=== PATIENT | female | born 1935 | race Caucasian/White ===

== ENCOUNTER 2017-01-07 16:18 | Emergency (ER) | payer OTHER ==
[~2017-01-07] VITALS: Ht 165.1 cm; Wt 70.3 kg
[~2017-01-07 16:18] MED LIST: ARICEPT 5MG TAB5 MG PO; DIOVAN80 MG PO; FOLIC ACID 1 MG PO; GLIMEPIRIDE4 MG PO; JANUVIA 100MG100 MG PO; JANUVIA 50MG50 MG PO; LABETALOL HYDR200 MG PO; LEVEMIR100 U/ML SC; METFORMIN ER500 MG PO; OMEPRAZOLE20 MG PO; ROZEREM8 MG PO; VALSARTAN320 MG PO
--- NOTE | 2017-01-07 16:49 | ED GENERAL ADULT ---
History of Present Illness General Chief Complaint: Dizziness Stated Complaint: PT IS DIZZY, LOW BLOOD PRESSURE Source: patient, family, old records Exam Limitations: patient's age, dementia, poor historian Vital Signs & Intake/Output Vital Signs & Intake/Output Vital Signs Date Time Temp Pulse Resp B/P B/P Pulse O2 O2 Flow FiO2 Mean Ox Delivery Rate 01/07 1945 97.2 68 18 149/79 98 Room Air 01/07 1838 97.1 62 20 170/84 98 Room Air 01/07 1627 97.4 88 16 119/66 98 Room Air ED Intake and Output 01/08 0000 01/07 1200 Intake Total Output Total Balance Patient 155 lb Weight Weight Estimated Measurement Method Allergies Uncoded Allergies: SELFISH (ANAPHYLAXIS 01/07/17) Reconcile Medications Cephalexin (Keflex) 500 MG CAPSULE 1 CAP PO TID uti Donepezil Hyrochloride (Aricept 5MG Tab) 5 MG TAB 1 TAB PO DAILY DEMENTIA Folic Acid 1 MG TABLET 1 MG PO DAILY FOLIC ACID SUPPLEMENT (Reported) Insulin Detemir (Levemir) 100 U/ML ESPERANZA 6 U SC DAILY DIABETES (Reported) Omeprazole 20 MG CAPSULE.DR 20 MG PO DAILY ACID REFLUX (Reported) Ramelteon (Rozerem) 8 MG TAB 1 TAB PO AT BEDTIME SLEEP Sitagliptin Phosphate (Januvia) 50 MG TABLET 0.5 TAB PO DAILY DIABETES Valsartan (Diovan) 80 MG TAB 1 TAB PO DAILY HBP (Reported) Triage Note: PT C/O FEELING DIZZY. GRANDSON STATES PT IS NOT HERSELF TODAY WEAK AND HAS FATIGUE. PT BROUGHT TO EKG [place]. PT WITH HYPOTENSION TODAY PER GRANDSON Triage Nurses Notes Reviewed? yes Onset: Abrupt Duration: hour(s): (12), constant, continues in ED Timing: single episode today Severity: mild, moderate Severity Numbers: 4 No Modifying Factors: none LMP (ages 10-50): post menopausal : No Patient currently breastfeeds: No HPI: 81-year-old female with history of dementia and type 2 diabetes brought in by her son for possible altered mental status. Her son reports that patient has been unsure of where she was multiple times during the day. This is different than her usual status. She is usually oriented to person place and time. Patient currently denies any pain cough nausea vomiting fevers or urinary symptoms. She has been eating and drinking normally going the bathroom normally. Taking all of her medications as directed no new medications. Her son also reports that patient's blood pressure had been low to 90s over 50s. She usually runs 120s over 80s. Patient currently reports she feels well and has no concerns other than feeling dizzy. She reports dizziness when she goes from sitting to standing. Symptoms improved with rest after she sits down. No other associated symptoms. (SANTO MELTON PA-C) Past History Travel History Traveled to [place] past 21 day No Medical History Any Pertinent Medical History? see below for history Neurological: dementia EENT: NONE Cardiovascular: hypertension Respiratory: NONE Gastrointestinal: NONE Hepatic: NONE Renal: NONE Musculoskeletal: chronic back pain Psychiatric: NONE Endocrine: diabetes Blood Disorders: anemia Cancer(s): NONE [employer] SALES [employer]ATE/Reproductive: NONE History of MRSA: No History of VRE: No History of CDIFF: No Surgical History Surgical History: cholecystectomy, knee replacement Psychosocial History Who do you live with Family Services at Home None What is your primary language Luxembourgish Tobacco Use: Never used ETOH Use: denies use Illicit Drug Use: denies illicit drug use Family History Family History, If Any: FATHER FH: stomach cancer Hx Contributory? Yes (SANTO MELTON PA-C) Review of Systems Review of Systems Constitutional: Reports: no symptoms. EENTM: Reports: no symptoms. Respiratory: Reports: no symptoms. Cardiovascular: Reports: no symptoms. GI: Reports: no symptoms. Genitourinary: Reports: no symptoms. Musculoskeletal: Reports: no symptoms. Skin: Reports: no symptoms. Neurological/Psychological: Reports: see HPI, confusion, dementia, other (DIZZINESS). Hematologic/Endocrine: Reports: no symptoms. Immunologic/Allergic: Reports: no symptoms. All Other Systems: Reviewed and Negative (SANTO MELTON PA-C) Physical Exam Physical Exam General Appearance: well developed/nourished, no apparent distress, alert, awake Head: atraumatic, normal appearance Eyes: Bilateral: normal appearance, PERRL, EOMI. Ears, Nose, Throat: normal pharynx, normal ENT inspection, hearing grossly normal Neck: normal inspection, supple, full range of motion Respiratory: normal breath sounds, chest non-tender, no respiratory distress, lungs clear Cardiovascular: regular rate/rhythm Peripheral Pulses: 2+ radial (R), 2+ radial (L), 2+ dorsalis pedis (R), 2+ dorsalis pedis (L) Gastrointestinal: normal bowel sounds, soft, non-tender, no organomegaly Back: normal inspection, normal range of motion, no vertebral tenderness Extremities: normal inspection, normal capillary refill, normal range of motion, no edema Neurologic/Psych: no motor/sensory deficits, awake, alert, normal gait, normal mood/affect, disoriented x 3 (ORIENTED TO PERSON AND PLACE ) Reflexes: 2+: knee (R), knee (L). Skin: intact, normal color, warm/dry Lymphatic: no anterior cervical linette Core Measures ACS in differential dx? Yes CVA/TIA Diagnosis: No Severe Sepsis Present: No Septic Shock Present: No (GERONIMO MOYA,SANTO) Progress Differential Diagnoses I considered the following diagnoses in my evaluation of the patient: Sepsis, pneumonia, hypoglycemia, medication side effect, UTI, stroke, TIA, acute coronary syndrome, dementia, orthostatic hypotension Plan of Care: Orders Procedure Date/time Status Add-on Test (ER Only) 01/07 1844 Active CULTURE,URINE 01/07 1749 Active Telemetry/Sexual Assault Nurse 01/07 1731 Active MISTAKE 01/07 1707 Active URINALYSIS 01/07 1707 Complete TROPONIN LEVEL 01/07 170 Complete COMPREHENSIVE METABOLIC PANEL 01/07 170 Complete CBC WITHOUT DIFFERENTIAL 01/07 1707 Complete EKG 01/07 1619 Active Laboratory Tests 01/07/17 1749: Urine Color YEL, Urine Clarity CLEAR, Urine pH 6.0, Ur Specific Groom <= 1.005 , Urine Protein NEG, Urine Ketones NEG, Urine Nitrite NEG, Urine Bilirubin NEG, Urine Urobilinogen 0.2, Ur Leukocyte Esterase MOD H, Ur Microscopic SEDIMENT EXAMINED, Urine RBC RARE, Urine WBC 5-10 H, Ur Epithelial Cells FEW, Urine Bacteria FEW H, Urine Hemoglobin NEG, Urine Glucose NEG 01/07/17 1717: Anion Gap 10, Estimated GFR 25 L, BUN/Creatinine Ratio 22.1, Glucose 91, Calcium 9.2, Total Bilirubin 0.5, AST 17, ALT 27, Alkaline Phosphatase 48, Troponin I < 0.01, Total Protein 6.6, Albumin 3.8, Globulin 2.8, Albumin/ Globulin Ratio 1.4, CBC w Diff NO MAN DIFF REQ, RBC 3.76 L, MCV 86.0, MCH 28.8, RDW 15.4 H, MPV 7.6, Gran % 65.1, Lymphocytes % 20.7, Monocytes % 11.3 H, Eosinophils % 2.6, Basophils % 0.3, Absolute Granulocytes 3.5, Absolute Lymphocytes 1.1 L, Absolute Monocytes 0.6, Absolute Eosinophils 0.1, Absolute Basophils 0, PUBS MCHC 33.5 Microbiology 01/07 1844 URINE ROUT: Urine Culture - CAN Cancelled: DUP.ORDER 01/07 1749 URINE ROUT: Urine Culture - RECD 5:28 PM patient evaluated. Blood work sent imaging of the head and chest ordered. Follow up on results age and is nontoxic appearing and neurologically intact. Vitals are stable. 6:[address] scan of the head is within normal limits chest x-ray is within normal limits. Blood work is within normal limits when compared to previous. Urine is showing some signs of infection which could represent etiology of patient's symptoms. She'll be given 1 g of IV ceftriaxone urine culture ordered. Patient will be discharged home with a prescription for KEFLEX 500MG tid a day 1 week after receiving IV antibiotics. Reviewed all results with the patient and family members. She'll follow up with primary care doctor this week. Return to the emergency department as needed. case discussed with Dr. Yates is in agreement with the plan. Patient nontoxic appearing at discharge. (GERONIMO MOYA,SANTO) Diagnostic Imaging: Viewed by Me: Radiology Read, CT Scan. Initial ED EKG: normal sinus rhythm, LVH, no ST T wave changes Prior EKG: unchanged Repeat EKG: unchanged Comments: EXAMINATION: CT HEAD WITHOUT CONTRAST CLINICAL INFORMATION: Altered mental status. COMPARISON: Noncontrast head CT 03/28/2015. TECHNIQUE: Contiguous axial imaging was performed from the skull base to vertex without intravenous administration of contrast. DLP: 616 mGy-cm FINDINGS: No acute intracranial abnormality. No acute intracranial hemorrhage, mass or mass effect or abnormal extra-axial fluid collections. The density within the dural venous sinuses is within normal limits. Minimal parenchymal volume loss with proportional prominence of the sulci and ventricles. There are no focal areas of hypoattenuation within a vascular distribution to suggest acute transcortical ischemia. There is a small lacunar infarct within the left mayfield radiata. The basilar cisterns are patent. No acute calvarial abnormality is identified. Soft tissues appear unremarkable. The imaged paranasal sinuses and mastoid air cells are well aerated. IMPRESSION: No acute intracranial abnormality. EXAMINATION: XR PORTABLE CHEST CLINICAL INFORMATION: Altered mental status COMPARISON: 01/21/2015 TECHNIQUE: Portable frontal view of the chest was obtained. FINDINGS: There is a left ventricular configuration to the cardiac silhouette, unchanged. The thoracic aorta appears unremarkable. The lungs are clear. There is stable elevation of the right hemidiaphragm. No consolidation, pulmonary edema, pleural effusion, or pneumothorax. Mild multilevel degenerative changes of the spine without acute osseous abnormality. IMPRESSION: No acute abnormality. DICTATED BY: MARY ALICE WALSH MD DATE/TIME DICTATED:01/07/171748 WOODS OVERSEER:MAN DATE/TIME TRANSCRIBED:01/07/171748 (SANTO MELTON PA-C) Departure Departure Disposition: HOME OR SELF CARE Condition: Stable Clinical Impression Primary Impression: UTI (urinary tract infection) Qualifiers: Urinary tract infection type: site unspecified Secondary Impressions: Dementia Qualifiers: Dementia type: unspecified type Referrals: ORVILLE CALLAHAN,CHRISTOS Shaw (PCP/Family) Additional Instructions: Rest and drink plenty of fluids. Take Cipro as directed for the full course. Make a follow-up on with her primary care doctor this week. Review all results of today's visit with the primary care doctor. Return with any concerns. Please go over all results of today's visit with your primary care doctor. Contact your primary care doctor to let them know you were here in the emergency room. There may be nonspecific findings which may not be related to your visit today here in the emergency room but may require further evaluation and chronic monitoring by your primary care doctor. If you had a laceration today the chance of foreign body always remains. You should follow-up with your primary care doctor for recheck in 3-5 days for a wound check. If you had an x-ray done there is a chance that a fracture could have been missed on initial read and you should follow-up with your primary care doctor for repeat x-rays if symptoms persist. If your blood pressure was elevated here in the emergency room please have rechecked by her primary care doctor within the next 48 hours by your primary care doctor. If you were prescribed a narcotic here in the emergency room or any type of controlled substances you're not allowed to drive while taking this medication or operate any type of heavy machinery. Narcotics can make you feel lightheaded dizziness nausea and can cause constipation. You may need to sheepskin pickler a stool softener. Thank you for choosing [facility] emergency room. Please return to the emergency room immediately if you have any other concerns worsening of symptoms. Departure Forms: Customer Survey General Discharge Information Prescriptions: Current Visit Scripts Cephalexin (Keflex) 1 CAP PO TID #21 CAP (SANTO MELTON PA-C) PA/WEED THINNER Co-Sign Statement Statement: ED Attending supervision documentation- [X] I saw and evaluated the patient. I have also reviewed all the pertinent lab results and diagnostic results. I agree with the findings and the plan of care as documented in the PA's/WEED THINNER's documentation. [X] I have reviewed the ED Record and agree with the PA's/WEED THINNER's documentation. [] Additions or exceptions (if any) to the PAs/WEED THINNER's note and plan are summarized below: [] (CARMELITA CALLAHAN,ZABRINA Adamson) Critical Care Note Critical Care Note Critical Care Time: non-applicable (SANTO MELTON PA-C)
[2017-01-07 17:44] LABS: ABSOLUTE BASOPHIL COUNT 0 /CUMM (0.0-0.2); ABSOLUTE EOSINOPHIL COUNT 0.1 /CUMM (0.0-0.7); ABSOLUTE GRANULOCYTE CT 3.5 /CUMM (1.4-6.5); ABSOLUTE LYMPH COUNT 1.1 /CUMM (1.2-3.4); ABSOLUTE MONOCYTE COUNT 0.6 /CUMM (0.10-0.60); BASOPHIL % 0.3 % (0.0-2.0); EOSINOPHIL % 2.6 % (0-5); GRANULOCYTE % 65.1 % (42.2-75.2); HEMATOCRIT 32.3 % (37-47); MEAN CORPUSCULAR HGB 28.8 PG (27.0-31.0); MEAN CORPUSCULAR HGB CONC 33.5 G/DL (33.0-37.0); MEAN PLATELET VOLUME 7.6 FL (7.4-10.4); PLATELET COUNT 135 /CUMM (130-400); RBC DISTRIBUTION WIDTH 15.4 % (11.5-14.5); RED BLOOD CELL CT 3.76 /CUMM (4.20-5.40); WHITE BLOOD CELL COUNT 5.3 /CUMM (4.8-10.8)
--- NOTE | 2017-01-07 17:54 | RADIOLOGY REPORT ---
EXAMINATION: XR PORTABLE CHEST CLINICAL INFORMATION: Altered mental status COMPARISON: 01/21/2015 TECHNIQUE: Portable frontal view of the chest was obtained. FINDINGS: There is a left ventricular configuration to the cardiac silhouette, unchanged. The thoracic aorta appears unremarkable. The lungs are clear. There is stable elevation of the right hemidiaphragm. No consolidation, pulmonary edema, pleural effusion, or pneumothorax. Mild multilevel degenerative changes of the spine without acute osseous abnormality. IMPRESSION: No acute abnormality.
--- NOTE | 2017-01-07 18:32 | CT SCAN REPORT ---
EXAMINATION: CT HEAD WITHOUT CONTRAST CLINICAL INFORMATION: Altered mental status. COMPARISON: Noncontrast head CT 03/28/2015. TECHNIQUE: Contiguous axial imaging was performed from the skull base to vertex without intravenous administration of contrast. DLP: 616 mGy-cm FINDINGS: No acute intracranial abnormality. No acute intracranial hemorrhage, mass or mass effect or abnormal extra-axial fluid collections. The density within the dural venous sinuses is within normal limits. Minimal parenchymal volume loss with proportional prominence of the sulci and ventricles. There are no focal areas of hypoattenuation within a vascular distribution to suggest acute transcortical ischemia. There is a small lacunar infarct within the left mayfield radiata. The basilar cisterns are patent. No acute calvarial abnormality is identified. Soft tissues appear unremarkable. The imaged paranasal sinuses and mastoid air cells are well aerated. IMPRESSION: No acute intracranial abnormality.
[2017-01-07] MEDS ORDERED: KEFLEX500 M1 PO (19:37)
[2017-01-07 19:45] VITALS: BP 149/79
== END 2017-01-07 19:47 ==
LOC: ERH 16:18
PROVIDERS: Physician Assistant Medical
DX: N39.0 Urinary tract infection, site not specified (principal); F03.90 Unspecified dementia, unspecified severity, without behavioral disturbance, psychotic disturbance, mood disturbance, and anxiety
CPT/HCPCS: 81001; 87086; 93005; 93010; 96374; J0696

== ENCOUNTER 2017-01-17 12:29 | Emergency (ER) | payer OTHER ==
[~2017-01-17] VITALS: Ht 157.5 cm; Wt 81.6 kg
[~2017-01-17 12:29] MED LIST changes: +KEFLEX500 M1 PO
--- NOTE | 2017-01-17 12:48 | ED GENERAL ADULT ---
History of Present Illness General Chief Complaint: General Adult Stated Complaint: AMS,?UTI Source: patient, family, old records Exam Limitations: no limitations Vital Signs & Intake/Output Vital Signs & Intake/Output Vital Signs Date Time Temp Pulse Resp B/P B/P Pulse O2 O2 Flow FiO2 Mean Ox Delivery Rate 01/17 1559 97.0 64 18 175/77 97 Room Air 01/17 1338 97.6 70 18 139/62 98 Room Air 01/17 1232 98.0 76 15 136/67 97 Room Air Room Air Allergies Coded Allergies: shellfish derived (Severe, ANAPHYLAXIS 01/17/17) Reconcile Medications Cephalexin (Keflex) 500 MG CAPSULE 1 CAP PO TID uti Donepezil Hyrochloride (Aricept 5MG Tab) 5 MG TAB 1 TAB PO DAILY DEMENTIA Folic Acid 1 MG TABLET 1 MG PO DAILY FOLIC ACID SUPPLEMENT (Reported) Insulin Detemir (Levemir) 100 U/ML ESPERANZA 6 U SC DAILY DIABETES (Reported) Omeprazole 20 MG CAPSULE.DR 20 MG PO DAILY ACID REFLUX (Reported) Ramelteon (Rozerem) 8 MG TAB 1 TAB PO AT BEDTIME SLEEP Sitagliptin Phosphate (Januvia) 50 MG TABLET 0.5 TAB PO DAILY DIABETES Valsartan (Diovan) 80 MG TAB 1 TAB PO DAILY HBP (Reported) Triage Note: PT TO ED WITH FAMILY MEMBERS WHO REPORT PT HAS BEEN ACTING OUT OF CHARACTER. RECENTLY DIAGNOSED WIT UTI 10 DAYS AGO AND JUST FINISHED ANTIBIOTICS. PT'S SON REPORTS THAT SHE HAD A SWEATER TIED AROUND HER ANKLES AND WAS TRYING TO WALK IN THE HALLWAY. PT WAS ALSO COMBATIVE AND ACTING OUT OF NORMAL FOR HERSELF. PT IS CALM AND COOPERATIVE, ALERT TO SELF AND PLACE. NO ACUTE DISTRESS NOTED. ALL NEUROS INTACT. Triage Nurses Notes Reviewed? yes Onset: Abrupt Duration: hour(s): Timing: single episode today Injury Environment: home Severity: moderate HPI: 81F with history of dementia and type 2 diabetes presents to ED in care of family complaining of AMS episode this morning. Family states that the patient was behaving abnormally, she was acting childish and joking however would not speak for a period of time and was dressed abnormally with her sweater tied around her ankle. They also found her room dissheveled. The patient is unable to remember the events of this morning. She cannot remember her breakfast or that she was acting differently. Family states patient's blood sugars have been normal for her between 140-160. Family states that the patient was complaining of intruders in her home this month which is new for her. Patient lives in her home alone and has a home health aid who visits her home every day however only for 2 hrs a day. Denies fall, syncope, chest pain, abdominal pain, frequency, dysuria, diarrhea, constipation, dyspnea, lightheadedness. (JANNET ATWOOD PA-C) Past History Travel History Traveled to [place] past 21 day No Medical History Any Pertinent Medical History? see below for history Neurological: dementia EENT: NONE Cardiovascular: hypertension Respiratory: NONE Gastrointestinal: NONE Hepatic: NONE Renal: NONE Musculoskeletal: chronic back pain Psychiatric: NONE Endocrine: diabetes Blood Disorders: anemia Cancer(s): NONE HAIR DRYER/Reproductive: NONE History of MRSA: No History of VRE: No History of CDIFF: No Surgical History Surgical History: cholecystectomy, knee replacement Psychosocial History Who do you live with Family Services at Home None What is your primary language Danish Tobacco Use: Never used ETOH Use: denies use Illicit Drug Use: denies illicit drug use Family History Family History, If Any: FATHER FH: stomach cancer Hx Contributory? No (JANNET ATWOOD PA-C) Review of Systems Review of Systems Constitutional: Reports: no symptoms. EENTM: Reports: no symptoms. Respiratory: Reports: no symptoms. Cardiovascular: Reports: no symptoms. GI: Reports: no symptoms. Genitourinary: Reports: no symptoms. Musculoskeletal: Reports: no symptoms. Skin: Reports: no symptoms. Neurological/Psychological: Reports: see HPI. Hematologic/Endocrine: Reports: no symptoms. Immunologic/Allergic: Reports: no symptoms. All Other Systems: Reviewed and Negative (JANNET ATWOOD PA-C) Physical Exam Physical Exam General Appearance: well developed/nourished, no apparent distress, alert, awake , comfortable Head: atraumatic, normal appearance, No tenderness to palpation, no injuries detected Eyes: Bilateral: normal appearance, PERRL, EOMI. Ears, Nose, Throat: normal pharynx, hearing grossly normal Neck: normal inspection, supple, full range of motion Respiratory: normal breath sounds, chest non-tender, no respiratory distress, lungs clear Cardiovascular: regular rate/rhythm Gastrointestinal: normal bowel sounds, soft, non-tender, no organomegaly Back: normal inspection, normal range of motion, no vertebral tenderness, no CVA tenderness Extremities: normal inspection, normal range of motion, no edema Neurologic/Psych: no motor/sensory deficits, awake, alert, normal gait, deputy director of public works II- XII nml as tested, finger to nose mild defecit, deficit with JOSE Skin: intact, normal color, warm/dry, no ecchymosis, no injury to skin detected Core Measures ACS in differential dx? Yes CVA/TIA Diagnosis: Yes Severe Sepsis Present: No Septic Shock Present: No (ANGELIC MOYA,JANNET) Progress Differential Diagnoses I considered the following diagnoses in my evaluation of the patient: [CVA, TIA, ICH, DE, UTI, normo pressure hydrocephalus, dementia] Plan of Care: Orders Procedure Date/time Status URINALYSIS 01/17 1313 Complete TROPONIN LEVEL 01/17 1238 Complete COMPREHENSIVE METABOLIC PANEL 01/17 1238 Complete CBC WITHOUT DIFFERENTIAL 01/17 1238 Complete EKG 01/17 1238 Active Laboratory Tests 01/17/17 1450: Urine Color YEL, Urine Clarity CLEAR, Urine pH 6.0, Ur Specific [place] 1.020, Urine Protein NEG, Urine Ketones NEG, Urine Nitrite NEG, Urine Bilirubin NEG, Urine Urobilinogen 0.2, Ur Leukocyte Esterase NEG, Ur Microscopic EXAM NOT REQUIRED, Urine Hemoglobin NEG, Urine Glucose NEG 01/17/17 1255: Anion Gap 9, Estimated GFR 27 L, BUN/Creatinine Ratio 18.9, Glucose 136 H, Calcium 9.1, Total Bilirubin 0.6, AST 25, ALT 38, Alkaline Phosphatase 57, Troponin I < 0.01, Total Protein 6.7, Albumin 4.2, Globulin 2.5, Albumin/ Globulin Ratio 1.7, CBC w Diff NO MAN DIFF REQ, RBC 3.92 L, MCV 85.1, MCH 28.7, RDW 14.7 H, MPV 7.1 L, Gran % 72.4, Lymphocytes % 17.7 L, Monocytes % 7.4, Eosinophils % 2.2, Basophils % 0.3, Absolute Granulocytes 3.8, Absolute Lymphocytes 0.9 L, Absolute Monocytes 0.4, Absolute Eosinophils 0.1, Absolute Basophils 0, PUBS MCHC 33.8 Patient has returned to baseline since her episode of AMS this morning. Family is concerned because this is her first episode of this behaviour which was an abrupt change from her baseline dementia. UA negative, CT scan WNL. Images and labs discussed with family. Patient had abnormality with JOSE on neuro exam however this could be her baseline, family states she is acting her normal self during duration of stay in ED. Patient seen sitting comfortably in stretcher and walking without assistance to bathroom, she is in no distress. Patient was discussed with Dr. Larios, patient is medically cleared based on diagnotics and labs. Case discussed with case management, given patient's current return to baseline she will not likely meet criteria for admission. Case management counseled family about options for nursing home care given possible decline in dementia or increased aid coverage in her home. Patient will have home RN come for added care and will also have home social work within the next 48 hrs for further evaluation. Family and patient are in agreement with plan of care. (ANGELIC MOYA,JANNET) Diagnostic Imaging: Viewed by Me: CT Scan. Discussed w/RAD: CT Scan. Radiology Impression: PATIENT: QUINTON VARGHESE PRESENT AGE: 81 PATIENT ACCOUNT NO: [id number] : 36 LOCATION: [facility] ORDERING PHYSICIAN: JANNET ATWOOD PA-C SERVICE DATE: 01/17/17 EXAM TYPE: CAT - CT HEAD WO IV CONTRAST EXAMINATION: CT HEAD WITHOUT CONTRAST CLINICAL INFORMATION: Altered mental status. Abnormal cerebellar tests. COMPARISON: 01/07 TECHNIQUE: Contiguous axial imaging was performed from the skull base to vertex without intravenous administration of contrast. DLP: 632 mGy-cm FINDINGS: Atherosclerotic calcification of cavernous carotid and vertebral arteries. The dick-white matter differentiation is well preserved. There is an old lacunar infarction in the medial left mayfield radiata. No acute major vascular territory infarction, hemorrhage, extra-axial fluid collection, mass or midline shift. There is chronic, mild atrophy of cerebral hemispheres with symmetric prominence of lateral ventricles and sulci. The cerebellum and brainstem are unremarkable. The calvarium is intact and the visualized paranasal sinuses, mastoid air cells and middle ear cavities are well aerated. The orbits, globes and temporomandibular joints are unremarkable. IMPRESSION: No acute intracranial pathology compared to 01/07/2017. DICTATED BY: WAQAS KIM MD DATE/TIME DICTATED:01/17/171421 FOOD STOREROOM CLERK:MAN DATE/TIME TRANSCRIBED:1421 CONFIDENTIAL, DO NOT COPY WITHOUT APPROPRIATE AUTHORIZATION. < Electronically signed in Other Vendor System> SIGNED BY: WAQAS KIM MD 01/17/171428 CXR Impression: PATIENT: QUINTON VARGHESE PRESENT AGE: 81 PATIENT ACCOUNT NO: [id number] : 36 LOCATION: [facility] ORDERING PHYSICIAN: JANNET ATWOOD PA-C SERVICE DATE: 01/17/17 EXAM TYPE: RAD - XRY-PORTABLE CHEST XRAY EXAMINATION: XR PORTABLE CHEST CLINICAL INFORMATION: Mental status change COMPARISON: 01/07/2017 and 01/19/2015 chest x-rays TECHNIQUE: Portable AP upright view of the chest was obtained. FINDINGS: The x-ray is taken with mild rotation toward the left side. The cardiomediastinal silhouette is normal. The lungs are clear. No pleural effusions or pneumothorax. The pulmonary vascularity is normal. The visualized bones are unremarkable. IMPRESSION: No acute cardiopulmonary findings. DICTATED BY: NABOR DIAZ MD DATE/TIME DICTATED:1338 FOOD STOREROOM CLERK:MAN DATE/TIME TRANSCRIBED:01/17/171338 CONFIDENTIAL, DO NOT COPY WITHOUT APPROPRIATE AUTHORIZATION. <Electronically signed in Other Vendor System> SIGNED BY: NABOR DIAZ MD 01/17/17 1343 Initial ED EKG: sinus at 63bpm, LVH Prior EKG: unchanged (JANNET ATWOOD PA-C) Departure Departure Disposition: HOME OR SELF CARE Condition: Stable Clinical Impression Primary Impression: Acute delirium Referrals: CHRISTOS JACINTO MD (PCP/Family) Additional Instructions: As discussed with case management - Increase care with visiting nurse and social work. Follow up with your primary care doctor for further evaluation and work up. Return with any worsening symptoms or concerns. Departure Forms: Customer Survey General Discharge Information (JANNET ATWOOD PA-C) PA/CHHA Co-Sign Statement Statement: ED Attending supervision documentation- [X] I saw and evaluated the patient. I have also reviewed all the pertinent lab results and diagnostic results. I agree with the findings and the plan of care as documented in the PA's/CHHA's documentation. [X] I have reviewed the ED Record and agree with the PA's/CHHA's documentation. [] Additions or exceptions (if any) to the PAs/CHHA's note and plan are summarized below: [] (ONEAL CALLAHAN,CARLA) Critical Care Note Critical Care Note Critical Care Time: non-applicable (ANGELIC MOYA,JANNET)
[2017-01-17 13:05] LABS: ABSOLUTE BASOPHIL COUNT 0 /CUMM (0.0-0.2); ABSOLUTE EOSINOPHIL COUNT 0.1 /CUMM (0.0-0.7); ABSOLUTE GRANULOCYTE CT 3.8 /CUMM (1.4-6.5); ABSOLUTE LYMPH COUNT 0.9 /CUMM (1.2-3.4); ABSOLUTE MONOCYTE COUNT 0.4 /CUMM (0.10-0.60); BASOPHIL % 0.3 % (0.0-2.0); EOSINOPHIL % 2.2 % (0-5); GRANULOCYTE % 72.4 % (42.2-75.2); HEMATOCRIT 33.3 % (37-47); MEAN CORPUSCULAR HGB 28.7 PG (27.0-31.0); MEAN CORPUSCULAR HGB CONC 33.8 G/DL (33.0-37.0); MEAN CORPUSCULAR VOLUME 85.1 FL (81.0-99.0); MEAN PLATELET VOLUME 7.1 FL (7.4-10.4); PLATELET COUNT 150 /CUMM (130-400); RBC DISTRIBUTION WIDTH 14.7 % (11.5-14.5); RED BLOOD CELL CT 3.92 /CUMM (4.20-5.40); WHITE BLOOD CELL COUNT 5.2 /CUMM (4.8-10.8)
--- NOTE | 2017-01-17 13:43 | RADIOLOGY REPORT ---
EXAMINATION: XR PORTABLE CHEST CLINICAL INFORMATION: Mental status change COMPARISON: 01/07/2017 and 01/19/2015 chest x-rays TECHNIQUE: Portable AP upright view of the chest was obtained. FINDINGS: The x-ray is taken with mild rotation toward the left side. The cardiomediastinal silhouette is normal. The lungs are clear. No pleural effusions or pneumothorax. The pulmonary vascularity is normal. The visualized bones are unremarkable. IMPRESSION: No acute cardiopulmonary findings.
--- NOTE | 2017-01-17 14:29 | CT SCAN REPORT ---
EXAMINATION: CT HEAD WITHOUT CONTRAST CLINICAL INFORMATION: Altered mental status. Abnormal cerebellar tests. COMPARISON: 01/07/2017 TECHNIQUE: Contiguous axial imaging was performed from the skull base to vertex without intravenous administration of contrast. DLP: 632 mGy-cm FINDINGS: Atherosclerotic calcification of cavernous carotid and vertebral arteries. The dick-white matter differentiation is well preserved. There is an old lacunar infarction in the medial left mayfield radiata. No acute major vascular territory infarction, hemorrhage, extra-axial fluid collection, mass or midline shift. There is chronic, mild atrophy of cerebral hemispheres with symmetric prominence of lateral ventricles and sulci. The cerebellum and brainstem are unremarkable. The calvarium is intact and the visualized paranasal sinuses, mastoid air cells and middle ear cavities are well aerated. The orbits, globes and temporomandibular joints are unremarkable. IMPRESSION: No acute intracranial pathology compared to 01/07/2017.
[2017-01-17 15:59] VITALS: BP 175/77
--- NOTE | 2017-01-17 16:38 | NUR ---
Case Mgmnt TSF: Bharati Santana and myself went in to see patient and family. Patient and family are fine with HHS being set up. Patient has a daily tag meter operator for 2 hours that is paid for privately. They have no preference for any agency. We also let them know that we would set them up with SW consult so they could work on getting [employer] beamer care benefits. Patient currently has [facility] only. I called [employer] and set up HHS for patient. I requested that they go out either Friday or Friday at the latest to open the case. They will call us if there are any issues. Case mgmnt continuing to follow.
== END 2017-01-17 16:30 ==
LOC: ERH 12:29
PROVIDERS: Emergency Medicine
DX: R41.0 Disorientation, unspecified (principal)
CPT/HCPCS: 81003; 93005; 93010

== ENCOUNTER 2017-08-06 14:23 | Emergency (ER) | payer OTHER ==
[~2017-08-06] VITALS: Ht 162.6 cm; Wt 81.6 kg
--- NOTE | 2017-08-06 16:49 | ED GI/GU/ABDOMINAL COMPLAINT ---
History of Present Illness General Chief Complaint: Abdominal Pain/Flank Pain Stated Complaint: HILARIO CALLAHAN FOR EVAL PER SON FEVER ABD PAIN Source: patient, family Exam Limitations: dementia Vital Signs & Intake/Output Vital Signs & Intake/Output Vital Signs Date Time Temp Pulse Resp B/P B/P Pulse O2 O2 Flow FiO2 Mean Ox Delivery Rate 08/06 1951 98.0 75 16 175/74 97 Room Air 08/06 1639 Room Air 08/06 1449 98.2 87 20 119/71 97 Room Air Room Air Allergies Coded Allergies: shellfish derived (Severe, ANAPHYLAXIS 01/17/17) Triage Note: PT TO ED WITH SON, FROM PMD OFFICE, HAS HAD FEVERS FOR 2-3 DAYS, PT LIVES IN [facility] IN [place]. WENT TO PMD AND HAD NEGATIVE URINE AT THIS OFFICE, SENT IN FOR EVAL OF FEVER. Triage Nurses Notes Reviewed? yes ? N Is pt currently ? No HPI: 82-year-old female with past medical history of dementia, hypertension, diabetes , chronic kidney disease came to [facility] with complaints of lower abdominal pain and fever. History was obtained from her son by the bedside due to her baseline dementia. Patient was in usual state of health until 3 days ago, following which she developed on and off dull aching lower abdominal pain not associated with fever, chills, heartburn, dysuria, hematuria, low backache, chest pain, chest pressure.She is eating and drinking well Patient was referred here by her primary care physician Dr. Adam who did the urinalysis in the clinic and found to be normal today. Patient lives in assisted living facility. She ambulates well without cane/walker. 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 Patient also had radiotherapy for the same. (Nati CALLAHAN,[facility]) Reconcile Medications Acetaminophen (Pain & Fever) 325 MG TABLET 2 TAB PO Q4H PRN PAIN (Reported) Calcium Carbonate/Vitamin D3 (Oyster Shell Calcium + D Cplt) 500 MG-200 TABLET 1 TAB PO DAILY SUPPLEMENT (Reported) Cholecalciferol (Vitamin D3) (Vitamin D) 2,000 UNIT CAPSULE 1 CAP PO DAILY SUPPLEMENT (Reported) Cyanocobalamin (Vitamin B-12) (Vitamin B-12) 1,000 MCG CAPSULE 1 CAP PO DAILY SUPPLEMENT (Reported) Donepezil HCl 5 MG TABLET 1 TAB PO DAILY MEMORY (Reported) Folic Acid 1 MG TABLET 1 TAB PO DAILY SUPPLEMENT (Reported) Insulin Detemir (Levemir Flextouch) 100 UNIT/ML (3 ML) INSULN.PEN 8 UNITS SC QAM DM (Reported) Labetalol HCl 200 MG TABLET 1 TAB PO DAILY HEART/BP (Reported) Sertraline HCl 25 MG TABLET 1 TAB PO DAILY MENTAL HEALTH (Reported) Sitagliptin Phosphate (Januvia) 25 MG TABLET 1 TAB PO DAILY DM (Reported) Valsartan 80 MG TABLET 1 TAB PO DAILY HEART/BP (Reported) (Ric CALLAHAN,Yina) Past History Travel History Traveled to [place] past 21 day No Medical History Any Pertinent Medical History? see below for history Neurological: dementia EENT: NONE Cardiovascular: hypertension Respiratory: NONE Gastrointestinal: NONE Hepatic: NONE Renal: chronic kidney disease Musculoskeletal: chronic back pain Psychiatric: NONE Endocrine: diabetes Blood Disorders: anemia Cancer(s): NONE PSYCHIATRIC SOCIAL WORKER/Reproductive: NONE History of MRSA: No History of VRE: No History of CDIFF: No Surgical History Surgical History: cholecystectomy, knee replacement Psychosocial History Where do you live Assisted Living Who do you live with Family Services at Home None What is your primary language Irish Tobacco Use: Never used ETOH Use: denies use Illicit Drug Use: denies illicit drug use Family History Family History, If Any: FATHER FH: stomach cancer Hx Contributory? Yes (Veronica Damian MD) Review of Systems Review of Systems Constitutional: Reports: fever. EENTM: Reports: no symptoms. Respiratory: Reports: no symptoms. Cardiovascular: Reports: no symptoms. GI: Reports: abdominal pain. Genitourinary: Reports: no symptoms. Musculoskeletal: Reports: no symptoms. Skin: Reports: no symptoms. Neurological/Psychological: Reports: no symptoms. Hematologic/Endocrine: Reports: no symptoms. (Veronica Damian MD) Physical Exam Physical Exam General Appearance: well developed/nourished, no apparent distress, alert, awake Head: atraumatic Ears, Nose, Throat, Mouth: hearing grossly normal Neck: normal inspection, supple, full range of motion Respiratory: normal breath sounds, chest non-tender, no respiratory distress Cardiovascular: regular rate/rhythm, normal peripheral pulses Peripheral Pulses: 4+ radial (R), 4+ radial (L) Gastrointestinal: normal bowel sounds, soft, non-tender, no organomegaly Extremities: normal range of motion Core Measures ACS in differential dx? No Sepsis Present: No Sepsis Focused Exam Completed? Yes (Nati CALLAHAN,Veronica) Progress Differential Diagnosis: diverticulitis, gastritis, UTI/pyelo Plan of Care: Orders Procedure Date/time Status RAPID VIRAL INFLUENZA A 08/06 143 Complete BLOOD CULTURE 08/06 143 Active URINALYSIS 08/06 143 Complete TROPONIN LEVEL 08/06 143 Complete LACTIC ACID 08/06 143 Complete COMPREHENSIVE METABOLIC PANEL 08/06 143 Complete CBC WITHOUT DIFFERENTIAL 08/06 143 Complete Laboratory Tests 08/06/17 2013: Urine Color YEL, Urine Clarity CLEAR, Urine pH 6.0, Ur Specific [place] 1.025, Urine Protein TRACE H, Urine Ketones NEG, Urine Nitrite NEG, Urine Bilirubin NEG, Urine Urobilinogen 0.2, Ur Leukocyte Esterase TRACE H, Ur Microscopic SEDIMENT EXAMINED, Urine RBC RARE, Urine WBC 1-3 H, Ur Epithelial Cells FEW, Urine Bacteria FEW H, Urine Hemoglobin TRACE-INTACT, Urine Glucose NEG 08/06/171810: CBC w Diff MAN DIFF ORDERED, RBC 3.56 L, MCV 87.9, MCH 28.8, RDW 13.8, MPV 7.7, Gran % 85.2 H, Lymphocytes % 7.0 L, Monocytes % 7.2, Eosinophils % 0.5, Basophils % 0.1, Absolute Granulocytes 13.6 H, Segmented Neutrophils 80 H, Band Neutrophils 7 H, Absolute Lymphocytes 1.1 L, Lymphocytes 7 L, Monocytes 5, Absolute Monocytes 1.2 H, Eosinophils 1, Absolute Eosinophils 0.1, Absolute Basophils 0, Platelet Estimate ADEQUATE, Polychromasia 1+, Hypochromic- Microcytic 2+, Anisocytosis 1+, PUBS MCHC 32.8 L 08/06/17 1738: Lactic Acid Cancelled 08/06/17 1506: Anion Gap 16, Estimated GFR 27 L, BUN/Creatinine Ratio 16.1, Glucose 195 H, Lactic Acid 1.5, Calcium 9.5, Total Bilirubin 0.4, AST 14, ALT 31, Alkaline Phosphatase 68, Troponin I < 0.01, Total Protein 6.9, Albumin 3.6, Globulin 3.3, Albumin/Globulin Ratio 1.1 Microbiology 08/06 1811 BLOOD: Blood Culture - RECD 08/06 1645 NASOPHARYN: Influenza Virus A & B Rapid Smear - COMP 08/06 1506 BLOOD: Blood Culture - RECD ENDORSED TO DR ANNE PENDING LABS. IF WNL, MAY SEND BACK TO ASSISTED [facility]IV[facility] WITH PO ABX, F/U. (Ric CALLAHAN,Yina) Initial ED EKG: none (Nati CALLAHAN,Veronica) Diagnostic Imaging: Viewed by Me: CT Scan. Discussed w/RAD: CT Scan. Radiology Impression: PATIENT: QUINTON VARGHESE PRESENT AGE: 82 PATIENT ACCOUNT NO: [id number] : 36 LOCATION: [facility] ORDERING PHYSICIAN: Veronica Damian MD SERVICE DATE: 08/06/17 EXAM TYPE: CAT - CT ABD & PELVIS W/O IV CONTRAS EXAMINATION: CT ABDOMEN AND PELVIS WITH CONTRAST CLINICAL INFORMATION: Lower abdominal pain. Fever. COMPARISON: None. TECHNIQUE: Contiguous axial thin section helical images of the abdomen and pelvis were performed following the administration of 100 mL of intravenous Omnipaque 300. The data set was reformatted in the coronal and sagittal planes and reviewed on an independent workstation. DLP: 676 mGy-cm. FINDINGS: The visualized lung bases are clear. The visualized portions of the heart are unremarkable. There is a small hiatal hernia. The liver is of normal size and attenuation without focal lesions nor intrahepatic biliary ductal dilation. The patient is status post cholecystectomy. Surgical clips are identified. The spleen, pancreas, adrenal glands are unremarkable. Both kidneys are of normal size and attenuation without hydronephrosis or nephrolithiasis. Following the administration of IV contrast, prompt symmetric nephrograms are displayed. There is no abdominal free fluid. There is neither mesenteric nor retroperitoneal lymphadenopathy. There are several diverticula within the sigmoid colon. There is mild wall thickening and adjacent mesenteric fat stranding. There are no drainable fluid collections. Otherwise, unremarkable unopacified loops of small and large bowel are identified. There is no pelvic free fluid. The urinary bladder is unremarkable. There is neither pelvic nor inguinal lymphadenopathy. Bone windows: Neither sclerotic nor lytic bone lesions are identified. IMPRESSION: Sigmoid diverticulosis and diverticulitis without drainable fluid collections. DICTATED BY: Eleazar Sullivan MD DATE/TIME DICTATED:08/06/171738 BUSINESS DEVELOPMENT COORDINATOR:MAN DATE/TIME TRANSCRIBED:08/06/171738 CONFIDENTIAL, DO NOT COPY WITHOUT APPROPRIATE AUTHORIZATION. <Electronically signed in Other Vendor System> SIGNED BY: Eleazar Sullivan MD 08/06/17 4538 Hand-Off Endorsed To: Javid Anne MD Endorsed Time: 1912 Pending: labs (CBC) (Yina Larios MD) Departure Departure Referrals: Gary Adam MD (PCP/Family) Departure Forms: Customer Survey General Discharge Information (Veronica Damian MD) Departure Clinical Impression Primary Impression: Sigmoid diverticulitis Resident Co-Sign Statement Statement: ED Attending supervision documentation- [X] I saw and evaluated the patient. I have also reviewed all the pertinent lab results and diagnostic results. I agree with the findings and the plan of care as documented in the Resident's documentation. [X] I have reviewed the ED Record and agree with the Resident's documentation. [] Additions or exceptions (if any) to the Resident's note and plan are summarized below: [] (Yina Larios MD) Departure Time of Disposition: 2046 Disposition: HOME OR SELF CARE Condition: Stable Prescriptions: Current Visit Scripts Amoxicillin/Potassium Clav (Augmentin 875-125 Tablet) 1 TAB PO BID #20 TAB (Javid Anne MD)
--- NOTE | 2017-08-06 17:46 | CT SCAN REPORT ---
EXAMINATION: CT ABDOMEN AND PELVIS WITH CONTRAST CLINICAL INFORMATION: Lower abdominal pain. Fever. COMPARISON: None. TECHNIQUE: Contiguous axial thin section helical images of the abdomen and pelvis were performed following the administration of 100 mL of intravenous Omnipaque 300. The data set was reformatted in the coronal and sagittal planes and reviewed on an independent workstation. DLP: 676 mGy-cm. FINDINGS: The visualized lung bases are clear. The visualized portions of the heart are unremarkable. There is a small hiatal hernia. The liver is of normal size and attenuation without focal lesions nor intrahepatic biliary ductal dilation. The patient is status post cholecystectomy. Surgical clips are identified. The spleen, pancreas, adrenal glands are unremarkable. Both kidneys are of normal size and attenuation without hydronephrosis or nephrolithiasis. Following the administration of IV contrast, prompt symmetric nephrograms are displayed. There is no abdominal free fluid. There is neither mesenteric nor retroperitoneal lymphadenopathy. There are several diverticula within the sigmoid colon. There is mild wall thickening and adjacent mesenteric fat stranding. There are no drainable fluid collections. Otherwise, unremarkable unopacified loops of small and large bowel are identified. There is no pelvic free fluid. The urinary bladder is unremarkable. There is neither pelvic nor inguinal lymphadenopathy. Bone windows: Neither sclerotic nor lytic bone lesions are identified. IMPRESSION: Sigmoid diverticulosis and diverticulitis without drainable fluid collections.
[2017-08-06] MEDS ORDERED: DONEPEZIL HCL5 MG PO (18:08)
[2017-08-06] MEDS ORDERED: FOLIC ACID1 M1 PO (18:09)
[2017-08-06] MEDS ORDERED: JANUVIA25 M1 PO (18:09)
[2017-08-06] MEDS ORDERED: LABETALOL HCL200 M1 PO (18:09)
[2017-08-06] MEDS ORDERED: LEVEMIR FL100 UNIT/1 SC (18:10)
[2017-08-06] MEDS ORDERED: OYSTER SHELL C PO (18:10)
[2017-08-06] MEDS ORDERED: SERTRALINE HCL25 MG PO (18:10)
[2017-08-06] MEDS ORDERED: VITAMIN D2000 UNIT PO (18:11)
[2017-08-06] MEDS ORDERED: VITAMIN B-121000 MC4 PO (18:11)
[2017-08-06] MEDS ORDERED: VALSARTAN80 M1 PO (18:11)
[2017-08-06] MEDS ORDERED: PAIN & FEVER325 M1 PO (18:12)
[2017-08-06 18:50] LABS: ABSOLUTE BASOPHIL COUNT 0 /CUMM (0.0-0.2); ABSOLUTE EOSINOPHIL COUNT 0.1 /CUMM (0.0-0.7); ABSOLUTE GRANULOCYTE CT 13.6 /CUMM (1.4-6.5); ABSOLUTE LYMPH COUNT 1.1 /CUMM (1.2-3.4); ABSOLUTE MONOCYTE COUNT 1.2 /CUMM (0.10-0.60); BASOPHIL % 0.1 % (0.0-2.0); EOSINOPHIL % 0.5 % (0-5); GRANULOCYTE % 85.2 % (42.2-75.2); HEMATOCRIT 31.3 % (37-47); MEAN CORPUSCULAR HGB 28.8 PG (27.0-31.0); MEAN CORPUSCULAR HGB CONC 32.8 G/DL (33.0-37.0); MEAN CORPUSCULAR VOLUME 87.9 FL (81.0-99.0); MEAN PLATELET VOLUME 7.7 FL (7.4-10.4); PLATELET COUNT 332 /CUMM (130-400); RBC DISTRIBUTION WIDTH 13.8 % (11.5-14.5); RED BLOOD CELL CT 3.56 /CUMM (4.20-5.40); WHITE BLOOD CELL COUNT 15.9 /CUMM (4.8-10.8)
[2017-08-06 19:52] VITALS: BP 175/74
[2017-08-06] MEDS ORDERED: AUGMENTIN 875-1 EACH PO (20:54)
== END 2017-08-06 21:11 ==
LOC: ERH 14:23
PROVIDERS: Physician Assistant Medical
DX: K57.32 Diverticulitis of large intestine without perforation or abscess without bleeding (principal); I10 Essential (primary) hypertension
CPT/HCPCS: 74176; 81001; 87040; 87804; 87804-59; 96374

== ENCOUNTER 2017-08-12 16:44 | Emergency (ER) | payer OTHER ==
[~2017-08-12] VITALS: Ht 160 cm; Wt 79.4 kg
[~2017-08-12 16:44] MED LIST changes: +AUGMENTIN 875-1 EACH PO; +DONEPEZIL HCL5 MG PO; +FOLIC ACID1 M1 PO; +JANUVIA25 M1 PO; +LABETALOL HCL200 M1 PO; +LEVEMIR FL100 UNIT/1 SC; +OYSTER SHELL C PO; +PAIN & FEVER325 M1 PO; +SERTRALINE HCL25 MG PO; +VALSARTAN80 M1 PO; +VITAMIN B-121000 MC4 PO; +VITAMIN D2000 UNIT PO
[2017-08-12 20:56] LABS: ABSOLUTE BASOPHIL COUNT 0 /CUMM (0.0-0.2); ABSOLUTE EOSINOPHIL COUNT 0.2 /CUMM (0.0-0.7); ABSOLUTE GRANULOCYTE CT 7.6 /CUMM (1.4-6.5); ABSOLUTE LYMPH COUNT 1.1 /CUMM (1.2-3.4); ABSOLUTE MONOCYTE COUNT 0.9 /CUMM (0.10-0.60); BASOPHIL % 0.2 % (0.0-2.0); EOSINOPHIL % 1.7 % (0-5); MEAN CORPUSCULAR HGB 28.9 PG (27.0-31.0); MEAN CORPUSCULAR HGB CONC 33.3 G/DL (33.0-37.0); MEAN CORPUSCULAR VOLUME 86.7 FL (81.0-99.0); MEAN PLATELET VOLUME 7.8 FL (7.4-10.4); PLATELET COUNT 279 /CUMM (130-400); RBC DISTRIBUTION WIDTH 13.7 % (11.5-14.5); RED BLOOD CELL CT 3.35 /CUMM (4.20-5.40); WHITE BLOOD CELL COUNT 9.7 /CUMM (4.8-10.8)
[2017-08-12 22:05] VITALS: BP 179/77
--- NOTE | 2017-08-12 22:09 | CT SCAN REPORT ---
EXAMINATION: CT ABDOMEN AND PELVIS WITHOUT CONTRAST CLINICAL INFORMATION: Worsening abdominal pain. COMPARISON: 08/06/2017. TECHNIQUE: Contiguous axial thin section helical images of the abdomen and pelvis were performed without oral or IV contrast. The data set was reformatted in the coronal and sagittal planes and reviewed on an independent workstation. DLP: 301 mGy-cm. FINDINGS: There is mild dependent bibasilar atelectasis. The visualized lung bases are otherwise clear. The visualized portions of the heart are unremarkable. There is a small hiatal hernia. The liver is of normal size and attenuation without focal lesions nor intrahepatic biliary ductal dilation. The patient is status post cholecystectomy. Surgical clips are identified. The spleen, pancreas, adrenal glands are unremarkable. Both kidneys are of normal size and attenuation without hydronephrosis or nephrolithiasis. There is no abdominal free fluid. There is neither mesenteric nor retroperitoneal lymphadenopathy. Again identified are manifestations of diverticulitis. Evaluation is significantly limited without oral or IV contrast. I question the presence of extraluminal gas and/or a fluid collection adjacent to the sigmoid colon best demonstrated on image 526/752. There is no pelvic free fluid. The urinary bladder is unremarkable. There is neither pelvic nor inguinal lymphadenopathy. Bone windows: Neither sclerotic nor lytic bone lesions are identified. IMPRESSION: Significantly limited examination without oral or IV contrast. Again identified are manifestations of diverticulitis as described on the prior report. I question the presence of a fluid collection within the pelvis. However, again, without oral or IV contrast, evaluation is significantly limited.
--- NOTE | 2017-08-12 22:30 | ED GI/GU/ABDOMINAL COMPLAINT ---
History of Present Illness General Chief Complaint: Female Urogenital Problems Stated Complaint: VAGINAL DISCHARGE AND ABD PAIN Source: patient, family ([facility]), old records Exam Limitations: dementia Vital Signs & Intake/Output Vital Signs & Intake/Output Vital Signs Date Time Temp Pulse Resp B/P B/P Pulse O2 O2 Flow FiO2 Mean Ox Delivery Rate 08/125 98.8 70 18 179/77 97 Room Air 08/12 2050 98.7 66 16 188/77 98 Room Air 08/12 2020 Room Air 08/12 1653 96.6 78 18 95/57 96 Room Air ED Intake and Output 08/13 0000 08/12 1200 Intake Total Output Total Balance Patient 175 lb Weight Weight Estimated Measurement Method Allergies Coded Allergies: shellfish derived (Severe, ANAPHYLAXIS 01/17/17) Reconcile Medications Acetaminophen (Pain & Fever) 325 MG TABLET 2 TAB PO Q4H PRN PAIN (Reported) Amoxicillin/Potassium Clav (Augmentin 875-125 Tablet) 875 MG-125 MG TABLET 1 TAB PO BID diverticulitis Calcium Carbonate/Vitamin D3 (Oyster Shell Calcium + D Cplt) 500 MG-200 TABLET 1 TAB PO DAILY SUPPLEMENT (Reported) Cholecalciferol (Vitamin D3) (Vitamin D) 2,000 UNIT CAPSULE 1 CAP PO DAILY SUPPLEMENT (Reported) Cyanocobalamin (Vitamin B-12) (Vitamin B-12) 1,000 MCG CAPSULE 1 CAP PO DAILY SUPPLEMENT (Reported) Donepezil HCl 5 MG TABLET 1 TAB PO DAILY MEMORY (Reported) Fluconazole (Diflucan) 150 MG TABLET 1 TAB PO Q72H yeast infection Folic Acid 1 MG TABLET 1 TAB PO DAILY SUPPLEMENT (Reported) Insulin Detemir (Levemir Flextouch) 100 UNIT/ML (3 ML) INSULN.PEN 8 UNITS SC QAM DM (Reported) Labetalol HCl 200 MG TABLET 1 TAB PO DAILY HEART/BP (Reported) Sertraline HCl 25 MG TABLET 1 TAB PO DAILY MENTAL HEALTH (Reported) Sitagliptin Phosphate (Januvia) 25 MG TABLET 1 TAB PO DAILY DM (Reported) Valsartan 80 MG TABLET 1 TAB PO DAILY HEART/BP (Reported) Triage Note: PATIENT TO ER WITH FAMILY STATES PATIENT WAS SEEN IN THE ER LAST WEEK FOR DIVERTICULITIS, STARTED ON ABX. PER FAMILY, NOTIFIED BY ASSISTED LIVING PATIENT BEGAN HAVING VAGINAL D/C TODAY AND CONTINUES WITH INTERMITTENT ABD PAIN. AFEBRILE. HX OF DEMENTIA Triage Nurses Notes Reviewed? yes LMP (ages 10-50): post menopausal ? N Is pt currently ? No Onset: Abrupt Duration: day(s): (10), changing over time, continues in ED Timing: single episode today Quality/Severity: moderate, sharpness Location: left lower quadrant, right upper quadrant Radiation: no radiation Activities at Onset: none Prior Abdominal Problems: similar symptoms (DIVERTICULITIS ) Sexually Active: No No Modifying Factors: none HPI: 82-year-old female past medical history of dementia hypertension and chronic back pain presents for evaluation of intermittent continued abdominal pain and vaginal discharge. Patient was seen here about one week ago with lower abdominal pain and diagnosed with diverticulitis. She was discharged home on Augmentin which she's been taking for the past 6 days. Patient lives and in a dementia unit. The staff there report that she has continued to report intermittent abdominal pain. The pain does not seem be getting worse but is persisting. Additionally they noticed thick white/yellow vaginal discharge today. Patient is not sexually active. She had a total hysterectomy done several years ago. No vaginal bleeding, fevers, nausea, vomiting, diarrhea, back pain, urinary symptoms or any other associated symptoms. The patient's son is at bedside and feels like her dementia/mental status is at baseline. (Abdullahi Alves) Past History Travel History Traveled to [place] past 21 day No Medical History Any Pertinent Medical History? see below for history Neurological: dementia EENT: NONE Cardiovascular: hypertension Respiratory: NONE Gastrointestinal: NONE Hepatic: NONE Renal: NONE Musculoskeletal: chronic back pain Psychiatric: NONE Endocrine: diabetes Blood Disorders: anemia Cancer(s): NONE LEAD CASE MANAGER/Reproductive: NONE History of MRSA: No History of VRE: No History of CDIFF: No Surgical History Surgical History: cholecystectomy, knee replacement Psychosocial History Who do you live with Family Services at Home None What is your primary language Persian Tobacco Use: Never used Family History Family History, If Any: FATHER FH: stomach cancer Hx Contributory? No (Abdullahi Alves) Review of Systems Review of Systems Constitutional: Reports: no symptoms. EENTM: Reports: no symptoms. Respiratory: Reports: no symptoms. Cardiovascular: Reports: no symptoms. GI: Reports: see HPI, abdominal pain. Genitourinary: Reports: see HPI, discharge. Musculoskeletal: Reports: no symptoms. Skin: Reports: no symptoms. Neurological/Psychological: Reports: no symptoms. Hematologic/Endocrine: Reports: no symptoms. Immunologic/Allergic: Reports: no symptoms. All Other Systems: Reviewed and Negative (Abdullahi Alves) Physical Exam Physical Exam General Appearance: well developed/nourished, no apparent distress, alert, awake , thin Head: atraumatic, normal appearance Eyes: Bilateral: normal appearance, PERRL, EOMI. Ears, Nose, Throat, Mouth: hearing grossly normal, moist mucous membrane Neck: normal inspection, supple, full range of motion Respiratory: normal breath sounds, chest non-tender, no respiratory distress, lungs clear Cardiovascular: regular rate/rhythm, normal peripheral pulses Peripheral Pulses: 2+ radial (R), 2+ radial (L) Gastrointestinal: normal bowel sounds, soft, non-tender, no organomegaly, NO PAIN WITH PALPATION Pelvic: normal external exam, discharge (THICK WHITE NO ODOR ), THE UTERUS AND CERVIX Back: normal inspection, normal range of motion, no vertebral tenderness Extremities: normal range of motion Neurologic/Psych: no motor/sensory deficits, awake, alert, PATIENT IS ALERT AND ORIENTED TO PERSON ONLY., SHE WAS ABLE TO WALK WITH A WALKER AT BASELINE Skin: intact, normal color, warm/dry Core Measures ACS in differential dx? No Sepsis Present: No Sepsis Focused Exam Completed? No (Abdullahi Alves) Progress Differential Diagnosis: appendicitis, biliary colic, bowel obstruction, colon cancer, cholecystitis, diverticulitis, gastritis, kidney stone, PID/cervicitis, SBO, UTI/pyelo, DIVERTICULITIS, PELVIC ABSCESS, VULVOVAGINAL CANDIDIASIS, BACTERIAL VAGINOSIS Plan of Care: Orders Procedure Date/time Status TRICHOMONAS 08/12 2047 Complete POTASSIUM HYDROXIDE (ROSAS) 08/12 2047 Complete GENITAL CULTURE 08/12 2047 Active CHLAMYDIA-GC DNA PROBE 08/12 2047 Active TROPONIN LEVEL 08/12 2019 Complete LIPASE 08/12 2019 Complete LACTIC ACID 08/12 2019 Complete COMPREHENSIVE METABOLIC PANEL 08/12 2019 Complete CBC WITHOUT DIFFERENTIAL 08/12 2019 Complete EKG 08/12 2019 Active Laboratory Tests 08/12/17 2320: Lactic Acid Cancelled 08/12/172047: Anion Gap 16, Estimated GFR 25 L, BUN/Creatinine Ratio 18.4, Glucose 171 H, Lactic Acid 0.9, Calcium 9.2, Total Bilirubin 0.2, AST 15, ALT 33, Alkaline Phosphatase 61, Troponin I < 0.01, Total Protein 6.0 L, Albumin 3.1 L, Globulin 2.9, Albumin/Globulin Ratio 1.1, Lipase 140, CBC w Diff NO MAN DIFF REQ , RBC 3.35 L, MCV 86.7, MCH 28.9, RDW 13.7, MPV 7.8, Gran % 78.0 H, Lymphocytes % 10.9 L, Monocytes % 9.2, Eosinophils % 1.7, Basophils % 0.2, Absolute Granulocytes 7.6 H, Absolute Lymphocytes 1.1 L, Absolute Monocytes 0.9 H, Absolute Eosinophils 0.2, Absolute Basophils 0, PUBS MCHC 33.3 08/12/17 2020: Urine Color Cancelled, Urine Clarity Cancelled, Urine pH Cancelled, Ur Specific [place] Cancelled, Urine Protein Cancelled, Urine Ketones Cancelled, Urine Nitrite Cancelled, Urine Bilirubin Cancelled, Urine Urobilinogen Cancelled, Ur Leukocyte Esterase Cancelled, Ur Microscopic Cancelled, Urine Hemoglobin Cancelled, Urine Glucose Cancelled Microbiology 08/12 2225 GENITAL: GC DNA Probe - RECD 08/12 2225 GENITAL: Chlamydia DNA Probe (VIRGILIO) - RECD 08/12 2225 GENITAL: ROSAS Preparation - COMP 08/12 2225 GENITAL: Trichomonas Preparation - COMP 08/12 2225 GENITAL: Genital Culture - RES Patient seen and evaluated. She was diagnosed diverticulitis 6 days ago started on Augmentin. She has been having intermittent abdominal pain since. Abdomen is currently soft and nontender. Blood work does not show an elevated white count she is afebrile nontoxic-appearing. CT scan does not show any definitive evidence of worsening diverticulitis or abscess. Patient appears clinically well low suspicion for acute abdomen/pelvic abscess clinically. Pelvic exam shows evidence likely of vulvovaginal candidiasis this is supported with history of recent antibiotic use. Patient is not sexually active. Advised patient to continue antibiotics as directed for the full course. She'll be covered with fluconazole 2 doses to 72 hours. Discussed return precautions in detail. Patient is nontoxic-appearing and agrees the plan. Case discussed with Dr. Larios she agrees. Initial ED EKG: normal sinus rhythm (Justin MCMAHAN,Abdullahi) Departure Departure Disposition: HOME OR SELF CARE Condition: Stable Clinical Impression Primary Impression: Acute diverticulitis Secondary Impressions: Vulvovaginal candidiasis Referrals: Jair CALLAHAN,Gary Shaw (PCP/Family) Additional Instructions: Rest and plenty of fluids. Continue antibiotics as directed for the full course. Take fluconazole as directed for yeast infection. Make a follow-up with primary care doctor and MECHANICAL SYSTEMS ENGINEER doctor as soon as possible. Monitor symptoms return with any concerns. Departure Forms: Customer Survey General Discharge Information Prescriptions: Current Visit Scripts Fluconazole (Diflucan) 1 TAB PO Q72H #2 TAB (Abdullahi Alves) PA/CLASSIFIER TENDER Co-Sign Statement Statement: ED Attending supervision documentation- [] I saw and evaluated the patient. I have also reviewed all the pertinent lab results and diagnostic results. I agree with the findings and the plan of care as documented in the PA's/CLASSIFIER TENDER's documentation. [X] I have reviewed the ED Record and agree with the PA's/CLASSIFIER TENDER's documentation. [] Additions or exceptions (if any) to the PAs/CLASSIFIER TENDER's note and plan are summarized below: [] (Ric CALLAHAN,Yina)
[2017-08-12] MEDS ORDERED: DIFLUCAN150 M1 PO (22:41)
== END 2017-08-12 23:06 ==
LOC: ERH 16:44
PROVIDERS: Physician Assistant Medical
DX: K57.92 Diverticulitis of intestine, part unspecified, without perforation or abscess without bleeding (principal); B37.3 Candidiasis of vulva and vagina
CPT/HCPCS: 87070; 74176; 87491; 87591; 93005; 93010